=== PATIENT | female | born 1955 | race Caucasian/White ===

== ENCOUNTER 2025-01-22 15:26 | Emergency (ER) | payer MEDICARE, SELFPAY ==
[2025-01-22] VITALS (22 sets, daily range): BP systolic 136–139; BP diastolic 58–97; PULSE 63–96; RESP 20; O2SAT 98
--- NOTE | 2025-01-22 16:01 | ED.GENADUL_ITS ---
Discharge Plan Disposition Patient Disposition: Home Condition: Improving Discharge Details Clinical Impression: Allergic reaction, Bee sting Primary Care Provider: Pamella,Local ED Provider: Blade Oliva Home Meds and New Rx's Prescriptions: New epinephrine [EpiPen 2-Luis Felipe] 0.3 mg/0.3 mL auto-injector 0.3 mg IM ONCE Qty: 2 0RF Rx Instructions: as a single dose; may repeat once Discharge Instructions Instructions: Allergic Reaction ED Additional Instructions: Please return to the Emergency Department for any worsening symptoms HPI General Date/Time Provider Initiated Documentation: 01/22/25 15:33 . HPI Narrative: 69-year-old female presents after being stung by multiple bees shortly after 2 PM, local reactions at sting sites on bilateral upper extremities and neck, patient does endorse some tingling on her tongue, no nausea vomiting or diarrhea no shortness of breath no chest pain no abdominal pain no syncope Related Data Home Medications ?Medication ?Instructions ?Recorded ?Confirmed epinephrine 0.3 mg/0.3 mL 0.3 mg (0.3 mL) IM ONCE #2 e a 01/22/25 injection, auto-injector (EpiPen 2-Luis Felipe) Previous Rx's ?Medication ?Instructions ?Recorded epinephrine 0.3 mg/0.3 mL 0.3 mg (0.3 mL) IM ONCE #2 e a 01/22/25 injection, auto-injector (EpiPen 2-Luis Felipe) Exam Narrative Exam Narrative: General: alert, no acute distress HEENT: normocephalic, atraumatic, neck supple, pupils equal round reactive to light, moist mucous membranes, tolerating secretions, normal voice, no rhinorrhea or otorrhea; normal voice on excretions no stridor, oropharynx unremarkable Respiratory: normal respiratory effort, lungs clear bilaterally, no wheezes rales or rhonchi Cardiac: regular rate and rhythm, no murmurs rubs or gallops; equal pulses bilaterally, warm well perfused Abdominal: soft, nontender, nondistended; no organomegaly or palpable masses MSK: normal range of motion of extremities, warm, well perfused Skin: Multiple localized urticarial reactions bilateral upper extremities and left lateral neck Neuro: AAOx3, CN II-XII intact, 5/5 strength bilateral upper and lower extremities, normal speech, no ataxia Psych: normal mood, normal affect, calm, cooperative Medical Decision Making 69-year-old female presents after being stung by multiple bees shortly after 2 PM presents with multiple areas of urticaria bilateral upper extremities and left lateral neck, patient subjectively feels some tingling at her tongue, no respiratory stress tolerant secretions normal voice no stridor, no presyncope or syncope and no GI symptoms however given skin involvement and subjective upper airway sensation we will treat for anaphylaxis will initiate epinephrine IM dexamethasone and Benadryl p.o. will observe closely here in department. Disposition pending reassessment 17: 19 patient resting comfortably no acute distress. No respiratory symptoms at this time. Tolerating p.o. Alert oriented. Will continue to observe 18: 10 patient resting comfortably no acute distress. Symptomatology has resolved. Patient requesting to go home. Home care instructions and return precautions given [facility] All Active Problems (Updated 01/22/25 @ 18:11 by Blade Oliva MD) Bee sting (Acute) Allergic reaction (Acute) Social History Smoking risk assessment performed?: No
[2025-01-22] MEDS: EPINEPHrine 0.3 MG KIT IM (16:11)
[2025-01-22] MEDS: diphenhydrAMINE 25 MG CAP PO (16:11)
[2025-01-22] MEDS: Dexamethasone 10 MG/ML VIAL PO (16:12)
== END 2025-01-22 18:34 | disposition home or self-care (01) ==
PROVIDERS: Emergency Provider Emergency Medicine
DX: T63.451A Toxic effect of venom of hornets, accidental (unintentional), initial encounter (principal); Y92.89 Other specified places as the place of occurrence of the external cause
CPT/HCPCS: 99283; J0165; J1100